=== PATIENT | male | born 1970 | race Caucasian/White ===

== ENCOUNTER 2024-10-12 09:28 | Outpatient (RCR) | payer BC, MEDICAID, SELFPAY ==
[2024-10-11 14:52] LABS: Basophils % (Auto) 1 % (0-2.5); Eosinophils # (Auto) 0.2 Thou/mm3 (0.0-0.5); Eosinophils % (Auto) 3 % (0-10); Hematocrit 32.5 % (41.0-53.0); Hemoglobin 11.2 g/dL (13.5-16.0); Immature Granulocytes % (Auto) 0 % (0-0); Immature Granulocytes Auto 0.01 Thou/mm3 (0.00-0.00); Lymphocytes # (Auto) 1.4 Thou/mm3 (1.0-4.8); Lymphocytes % (Auto) 27 % (10-50); Mean Corpuscular HGB Conc 34.5 g/dl (31.0-37.0); Mean Corpuscular Hemoglobin 29.6 pg (25.0-35.0); Mean Corpuscular Volume 86 fL (80-100); Monocytes # (Auto) 0.5 Thou/mm3 (0.0-0.8); Monocytes % (Auto) 9 % (0-12); Neutrophils # (Auto) 3.2 Thou/mm3 (1.8-7.7); Neutrophils % (Auto) 60 % (37-80); Nucleated Red Blood Cell % 0 /100 WBC (0); Platelet Count 272 Thou/mm3 (140-440); RDW Standard Deviation 47.5 fL (35.1-43.9); Red Blood Count 3.78 Miln/mm3 (4.50-5.90); White Blood Count 5.4 Thou/mm3 (3.8-10.6)
[2024-10-11 15:15] LABS: Alanine Aminotransferase 19 U/L (10-49); Albumin, Serum 4.4 gm/dL (3.5-5.0); Alkaline Phosphatase 83 U/L (46-116); Anion Gap 6 (7-16); Aspartate Amino Transferase 21 U/L (0-34); BUN/Creatinine Ratio 26 Ratio (12-20); Bilirubin,Total 0.7 mg/dL (0.3-1.2); Blood Urea Nitrogen 23 mg/dL (9-23); Carbon Dioxide 26.4 mMol/L (20.0-31.0); Chloride 107 mMol/L (98-107); Creatinine (Component) 0.9 mg/dL (0.6-1.3); Globulin 2.2 gm/dL (2.3-3.5); Glucose 92 mg/dL (74-106); Osmolality,Calculated 281 (275-295); Potassium 3.6 mMol/L (3.4-5.1); Sodium 139 mMol/L (136-145); Total Protein 6.6 gm/dL (5.7-8.2); eGFR > 60 See Note
[2024-10-11 15:16] LABS: Carcinoembryonic Antigen 1.2 ng/mL (0.0-5.0)
--- NOTE | 2024-10-14 18:25 | CTCFLWUP_ITS ---
Patient: DENIZ HARPER : 1970 Page 5 of 5 FOLLOW UP NOTE DATE OF SERVICE: 10/12/2024 NAME: DENIZ HARPER ACCOUNT: [id number] : 1970 AGE: 53 DIAGNOSIS: Stage IIa (pT3, N0, M0) moderately differentiated descending colon adenocarcinoma with hig h risk factors for recurrence (perineural invasion, less than 12 lymph nodes being examined, presente d with bowel obstruction) S/p left hemicolectomy (07/04/2023) S/p adjuvant chemotherapy with 5-FU and leucovorin (this 09/20/2023??02/21/2024) Bipolar disorder. Hypertension REASON FOR TODAY?S VISIT: This is office follow-up visit. Mr. Harper is here at [facility]. He is clinically doing very well. He completed adjuvant chemotherapy. Tolera bret chemotherapy very well without any significant side effects. He denies any complaints today. Denies any cough, chest pain, abdominal pain or leg cramps. Ambulat ing well without any help. Has good appetite and good energy levels. 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 HISTORY OF PRESENT ILLNESS: Deniz Harper is a 53-year-old ENG speaking male history of bi polar disorder has the following oncology history. 07/01/2023: Mr. Harper was seen in the [facility] emergency department because of abdo onelia pain and constipation of 1 week duration. 07/01/2023: CT scan of the abdomen and pelvis without contrast 07/02/2023: Patient had colonoscopy 07/04/2023 : Exploratory laparotomy and resection of the descending colon and splenic flexure, anastom osis between the distal transverse colon and the sigmoid colon. 07/06/2023: CT scan of the chest with IV contrast 07/25/2023: CT scan of the abdomen and pelvis with IV contrast 09/20/2023: Mr. Harper is started on adjuvant chemotherapy with 5-FU and leucovorin PAST MEDICAL HISTORY: colon?ca???chicken?pox PAST SURGICAL HISTORY: colon. appendix eye surg child ochoa . MEDICATIONS: 1. BuSpar - Daily 2. duloxetine - As directed 3. lisinopril - Daily Medications Last Reconciled by Sudha Agee MA on 04/13/2024 ALLERGIES: No Known Allergies REVIEW OF SYSTEMS: Neurological: No headache, seizures or blurring of vision. Gastrointestinal: No nausea, vomiting, diarrhea or constipation. Cardiovascular: No palpitations or angina pains. Respiratory: No cough, chest pain or shortness of breath. PHYSICAL EXAMINATION: VITAL SIGNS: Temperature?99.1, B/P?130/73, Oxygen?Saturation?96% Weight?187?lbs (Change?since?04/12/24 :?50?lbs) PAIN: 0 - No pain General Alert oriented x 4 ? MOUTH: Oral cavity is moist CHEST: Clear to auscultation. No wheezes or rales audible. CARDIAC: Rhythm regular, no murmurs or gallops present. ABDOMEN: Soft. No hepatomegaly. No splenomegaly. Has very well-healed incision in the midline. EXTREMITIES: No pedal edema or cyanosis. LABORATORY DATA: Date 10/11/2024 Time 1:51 PM ??WHITE BLOOD COUNT (Thou/mm3) 5.4 ??RED BLOOD COUNT (Miln/mm3) 3.78 L ??HEMOGLOBIN (gm/dl) 11.2 L ??HEMATOCRIT (%) 32.5 L ??MCV (MEAN CORPUSCULAR VOL) (fl) 86 ??MCH (MEAN CORPUSCULAR HGB) (pg) 29.6 ??MCHC (MEAN CORPSCULR HGB CONC) (gm/dl) 34.5 ??RDW (RBC DISTRIBUTION WDTH) SD (fl) 47.5 H ??PLATELET COUNT (Thou/mm3) 272 ??NEUTROPHILS %, AUTO (%) 60 ??LYMPH %, AUTO (%) 27 ??MONO %, AUTO (%) 9 ??EOS %, AUTO (%) 3 ??BASO %, AUTO (%) 1 ??NUCLEATED RBC % (/100 WBC) 0 ??NEUTROPHILS, AUTO (Thou/mm3) 3.2 ??LYMPH, AUTO (Thou/mm3) 1.4 ??MONO, AUTO (Thou/mm3) 0.5 ??EOS, AUTO (Thou/mm3) 0.2 ??BASO, AUTO (Thou/mm3) 0.0 ??NUCLEATED RBC # (Thou/mm3) 0.00 ??IMMATURE GRANULOCYTES % AUTO (%) 0 ??IMMATURE GRANULOCYTES, AUTO (Thou/mm3) 0.01 H ??GLUCOSE,RANDOM (mg/dL) 92 ??BLOOD UREA NITROGEN (mg/dL) 23 ??CREATININE (mg/dL) 0.90 ??SODIUM (mmol/L) 139 ??POTASSIUM (mmol/L) 3.6 ??CHLORIDE (mmol/L) 107 ??CO2 (CARBON DIOXIDE) (mmol/L) 26.4 ??ANION GAP (mmol/L) 6 L ??OSMOLALITY, CALC 281 ??BUN/CREATININE RATIO (Ratio) 26 H ??CrCl (CandG) (ml/min) 107.25 ??AST/SGOT (Unit/L) 21 ??ALT/SGPT (Unit/L) 19 ??ALKALINE PHOSPHATASE (Unit/L) 83 ??BILIRUBIN, TOTAL (mg/dL) 0.7 ??PROTEIN TOTAL (gm/dl) 6.6 ??ALBUMIN, SERUM (gm/dl) 4.4 ??GLOBULIN (gm/dl) 2.2 L ??ALBUMIN/GLOBULIN RATIO 2.0 ??CALCIUM, SERUM (mg/dL) 9.0 ??CALCIUM SERUM (CORRECTED) (mg/dL) 9.0 ??CEA (O*) (ng/ml) 1.2 Other Labs ? ??CrCl (J) (ml/min) 76.9 ??eGFR (See Note) > 60 ASSESSMENT and plan: 1. Stage IIa (pT3, N0, M0) moderately differentiated descending colon adenocarcinoma with high risk f actors for recurrence (perineural invasion, less than 12 lymph nodes being examined, presented with b owel obstruction) S/p left hemicolectomy (07/04/2023). No clinical evidence of recurrence of his colon cancer. Status post 6 months of adjuvant chemotherapy with 5-FU and leucovorin completed on 02/21/2024. Tolera bret chemotherapy without any significant side effects.. RTC in 6 months with labs 2.Bipolar disorder. 3.Hypertension 4.History of methamphetamine and alcohol abuse for about 6 years. Patient stopped about 30 [address] S[address] Martinez Electronically Signed by: {Object.Sanct_ID*PnP.NameFL@M}, {Object.Sanct_ID*PnP.Suffix@U} D: {Object.Sanct_Date} T: {Object.Sanct_Time} CC: Vel?Marisa,? PCP: Felisha Cummins Referring: Felisha Cummins This document was completed utilizing speech recognition software. Grammatical errors, random word in sertions, pronoun errors, and incomplete sentences are an occasional consequence of this system due t o software limitations, ambient noise, and hardware issues. Any formal questions or concerns about th e content, text or information contained within the body of this dictation should be directly address ed to the provider for clarification.
== END 2024-10-21 23:59 | disposition home or self-care (01) ==
LOC: SCTC 09:28
PROVIDERS: PCP Nurse Practitioner; Referring Provider Nurse Practitioner; Visit Provider Internal Medicine Hematology & Oncology
DX: Z08 Encounter for follow-up examination after completed treatment for malignant neoplasm (principal); Z85.038 Personal history of other malignant neoplasm of large intestine; Z90.49 Acquired absence of other specified parts of digestive tract; Z92.21 Personal history of antineoplastic chemotherapy; F31.9 Bipolar disorder, unspecified; I10 Essential (primary) hypertension; F15.11 Other stimulant abuse, in remission; F10.11 Alcohol abuse, in remission
CPT/HCPCS: 36591; 80053; 82378; 85025; 99212; A4216; J1642; G0463

== ENCOUNTER 2024-10-26 14:28 | Outpatient (RCR) | payer BC, MEDICAID, SELFPAY ==
[2024-10-26 16:17] LABS: Basophils % (Auto) 1 % (0-2.5); Eosinophils # (Auto) 0.3 Thou/mm3 (0.0-0.5); Eosinophils % (Auto) 5 % (0-10); Hematocrit 34.6 % (41.0-53.0); Hemoglobin 11.8 g/dL (13.5-16.0); Immature Granulocytes % (Auto) 0 % (0-0); Immature Granulocytes Auto 0.01 Thou/mm3 (0.00-0.00); Immature Reticulocyte Fraction 17.9 % (2.3-13.4); Lymphocytes # (Auto) 1.7 Thou/mm3 (1.0-4.8); Lymphocytes % (Auto) 27 % (10-50); Mean Corpuscular HGB Conc 34.1 g/dl (31.0-37.0); Mean Corpuscular Volume 88 fL (80-100); Monocytes # (Auto) 0.7 Thou/mm3 (0.0-0.8); Monocytes % (Auto) 10 % (0-12); Neutrophils # (Auto) 3.6 Thou/mm3 (1.8-7.7); Neutrophils % (Auto) 57 % (37-80); Nucleated Red Blood Cell % 0 /100 WBC (0); Platelet Count 228 Thou/mm3 (140-440); RDW Standard Deviation 47.8 fL (35.1-43.9); Red Blood Count 3.93 Miln/mm3 (4.50-5.90); Reticulocyte % (Auto) 1.4 % (0.5-1.5); Reticulocyte Absolute Auto 55.8 Biln/L (25.0-75.0); Reticulocyte Hgb Content 31.4 pg (28.0-35.0); White Blood Count 6.3 Thou/mm3 (3.8-10.6)
[2024-10-26 16:38] LABS: Alanine Aminotransferase 21 U/L (10-49); Albumin, Serum 4.9 gm/dL (3.5-5.0); Albumin/Globulin Ratio 2.2 (1.2-2.2); Alkaline Phosphatase 92 U/L (46-116); Anion Gap 8 (7-16); Aspartate Amino Transferase 23 U/L (0-34); BUN/Creatinine Ratio 25 Ratio (12-20); Bilirubin,Total 0.4 mg/dL (0.3-1.2); Blood Urea Nitrogen 25 mg/dL (9-23); Calcium 9.3 mg/dL (8.3-10.6); Calcium (Corrected) 9.3 mg/dL (8.5-10.1); Carbon Dioxide 26.3 mMol/L (20.0-31.0); Chloride 103 mMol/L (98-107); Globulin 2.2 gm/dL (2.3-3.5); Glucose 97 mg/dL (74-106); LDH (Lactate Dehydrogenase) 176 U/L (120-246); Osmolality,Calculated 278 (275-295); Potassium 4.3 mMol/L (3.4-5.1); Sodium 137 mMol/L (136-145); Total Protein 7.1 gm/dL (5.7-8.2); eGFR > 60 See Note
[2024-10-26 17:08] LABS: Carcinoembryonic Antigen 0.9 ng/mL (0.0-5.0)
[2024-10-26 19:11] LABS: Folate > 24.00 ng/mL (>5.38); Vitamin B12 495 pg/mL (211-911)
[2024-10-26 21:10] LABS: Ferritin 6 ng/mL (10.5-307.3); Total Iron Binding Capacity 403 mcg/dL (250-425)
[2024-10-27 10:20] LABS: Iron 61 mcg/dL (65-175); Percent Iron Saturation 15 % (20-55); Unsaturated Iron Binding 342 (225-295)
[2024-11-06 06:48] LABS: Haptoglobin* 205 mg/dL (43-212); Testosterone,Total* 234 ng/dL (250-1100)
== END 2024-11-21 23:59 | disposition home or self-care (01) ==
LOC: SCTC 14:28
PROVIDERS: PCP Nurse Practitioner; Referring Provider Nurse Practitioner; Visit Provider Internal Medicine Hematology & Oncology
DX: C18.6 Malignant neoplasm of descending colon (principal); Z90.49 Acquired absence of other specified parts of digestive tract; Z92.21 Personal history of antineoplastic chemotherapy; I10 Essential (primary) hypertension; F31.9 Bipolar disorder, unspecified
CPT/HCPCS: 36591; 80053; 82378; 82607; 82728; 82746; 83010; 83540; 83550; 83615; 84403; 85025; 85046; A4216; J1642

== ENCOUNTER 2024-12-19 11:00 | Outpatient (RCR) | payer BC, MEDICAID, SELFPAY ==
[2024-12-18 14:31] LABS: Basophils % (Auto) 0 % (0-2.5); Eosinophils # (Auto) 0.2 Thou/mm3 (0.0-0.5); Eosinophils % (Auto) 2 % (0-10); Hematocrit 37.9 % (41.0-53.0); Hemoglobin 13.6 g/dL (13.5-16.0); Immature Granulocytes % (Auto) 0 % (0-0); Immature Granulocytes Auto 0.01 Thou/mm3 (0.00-0.00); Lymphocytes # (Auto) 1.4 Thou/mm3 (1.0-4.8); Lymphocytes % (Auto) 19 % (10-50); Mean Corpuscular HGB Conc 35.9 g/dl (31.0-37.0); Mean Corpuscular Hemoglobin 31.3 pg (25.0-35.0); Mean Corpuscular Volume 87 fL (80-100); Monocytes # (Auto) 0.6 Thou/mm3 (0.0-0.8); Monocytes % (Auto) 8 % (0-12); Neutrophils % (Auto) 70 % (37-80); Nucleated Red Blood Cell % 0 /100 WBC (0); Platelet Count 245 Thou/mm3 (140-440); RDW Standard Deviation 45.1 fL (35.1-43.9); Red Blood Count 4.35 Miln/mm3 (4.50-5.90); White Blood Count 7.1 Thou/mm3 (3.8-10.6)
[2024-12-18 14:55] LABS: Alanine Aminotransferase 23 U/L (10-49); Albumin/Globulin Ratio 2.2 (1.2-2.2); Alkaline Phosphatase 78 U/L (46-116); Anion Gap 9 (7-16); Aspartate Amino Transferase 19 U/L (0-34); BUN/Creatinine Ratio 24 Ratio (12-20); Bilirubin,Total 0.6 mg/dL (0.3-1.2); Blood Urea Nitrogen 22 mg/dL (9-23); Calcium 9.4 mg/dL (8.3-10.6); Calcium (Corrected) 9.4 mg/dL (8.5-10.1); Carbon Dioxide 26.4 mMol/L (20.0-31.0); Chloride 104 mMol/L (98-107); Creatinine (Component) 0.9 mg/dL (0.6-1.3); Globulin 2.3 gm/dL (2.3-3.5); Glucose 128 mg/dL (74-106); Osmolality,Calculated 282 (275-295); Potassium 3.7 mMol/L (3.4-5.1); Sodium 139 mMol/L (136-145); Total Protein 7.3 gm/dL (5.7-8.2); eGFR > 60 See Note
--- NOTE | 2024-12-19 12:25 | CTCFLWUP_ITS ---
Patient: DENIZ HARPER : 1970 Page 2 of 2 FOLLOW UP NOTE DATE OF SERVICE: 12/19/2024 NAME: DENIZ HARPER ACCOUNT: [id number] : 1970 AGE: 54 INTERVAL HISTORY: Patient is here to follow-up on his labs. ONCOLOGY HISTORY: DIAGNOSIS: Malignant neoplasm of descending colon [ICD10] C18.6 Stage IIa (pT3, N0, M0) moderately differentiated descending colon adenocarcinoma with high risk factors for recurrence (perineural invasion, less than 12 lymph nodes being examined, presented with bowel obstruction) S/p left hemicolectomy (07/04/2023) S/p adjuvant chemotherapy with 5-FU and leucovorin (this 09/20/2023??02/21/2024) Bipolar disorder. Hypertension DATE OF DIAGNOSIS: 07/04/2023 STAGE/TNM: Stage II aT3 N0 M0 TREATMENT HISTORY: Care?Plan Start?Date Cycle Day Intent Bi?wkly?infusional?5?FU?and?Leucovorin 09/20/2023 1 14 Curative?(adjuvant) FERAheme?4?doses 12/19/2024 1 28 Maintenance HISTORY OF PRESENT ILLNESS: Deniz Harper is a 54-year-old ENG speaking male history of bipolar disorder has the following oncology history. 07/01/2023: Mr. Harper was seen in the [facility] emergency department because of abdominal pain and constipation of 1 week duration. 07/01/2023: CT scan of the abdomen and pelvis without contrast 07/02/2023: Patient had colonoscopy 07/06/2023: CT scan of the chest with IV contrast 07/25/2023: CT scan of the abdomen and pelvis with IV contrast 09/20/2023: Mr. Harper is started on adjuvant chemotherapy with 5-FU and leucovorin OTHER MEDICAL HISTORY/CONDITIONS: colon?ca???chicken?pox colon. appendix eye surg child ochoa . FAMILY HISTORY: Patient?denies?family?cancer?history. 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 MEDICATIONS: 1. BuSpar - Daily 2. duloxetine - As directed 3. lisinopril - Daily Medications Last Reconciled by Sudha Agee MA on 12/19/2024 ALLERGIES: No Known Allergies REVIEW OF SYSTEMS: A complete 14-point review of systems was performed and is negative except as noted in interval history. PHYSICAL EXAMINATION: VITAL SIGNS: Temperature?98.4, B/P?106/70, Oxygen?Saturation?98% Weight?181?lbs (Change?since?12/18/24:?-2.8?lbs) PAIN: 0 - No pain ECOG Performance Status: 0 - Asymptomatic and fully active General Alert oriented x 4 ? MOUTH: Oral cavity is moist CHEST: Clear to auscultation. No wheezes or rales audible. CARDIAC: Rhythm regular, no murmurs or gallops present. ABDOMEN: Soft. No hepatomegaly. No splenomegaly. Has very well-healed incision in the midline. EXTREMITIES: No pedal edema or cyanosis. LABORATORY DATA: I have personally reviewed and interpreted each of the patient?s relevant lab tests, abnormal findings are below: Date 12/18/24 ??GLUCOSE,RANDOM?(mg/dL) 128?H ??BLOOD?UREA?NITROGEN?(mg/dL) 22 ??CREATININE?(mg/dL) 0.90 ??SODIUM?(mmol/L) 139 ??POTASSIUM?(mmol/L) 3.7 ??CHLORIDE?(mmol/L) 104 ??CrCl?(CandG)?(ml/min) 108.07 ??AST/SGOT?(Unit/L) 19 ??ALT/SGPT?(Unit/L) 23 ??ALKALINE?PHOSPHATASE?(Unit/L) 78 ??BILIRUBIN,?TOTAL?(mg/dL) 0.6 ??PROTEIN?TOTAL?(gm/dl) 7.3 ??ALBUMIN,?SERUM?(gm/dl) 5.0 ??GLOBULIN?(gm/dl) 2.3 ??ALBUMIN/GLOBULIN?RATIO 2.2 ??CALCIUM,?SERUM?(mg/dL) 9.4 ??CALCIUM?SERUM?(CORRECTED)?(mg/dL) 9.4 ASSESSMENT/PLAN: #1Stage IIa (pT3, N0, M0) moderately differentiated descending colon adenocarcinoma with high risk factors for recurrence (perineural invasion, less than 12 lymph nodes being examined, presented with bowel obstruction) S/p left hemicolectomy (07/04/2023) Status post 6 months of adjuvant chemotherapy with 5-FU and leucovorin completed on 02/21/2024. Tolerated chemotherapy without any significant side effects.. As patient is found to be severely iron deficient even though clinical no signs or symptoms I will refer patient back to Dr. Adam for colonoscopy AMY #2 severe iron deficiency Patient at last visit was found to be anemic Iron studies were ordered and today ferritin is less than 6 Patient is severely iron deficient Denies any bleeding or bruising or change in the color of stools Will order IV iron #3 low testosterone Testosterone level 234 Patient extremely fatigued and tired Will do endocrine consult for testosterone supplement after patient has completed the IV infusions CBC CMP repeat iron studies in [address] Adam for colonoscopy Iron infusion orders RETURN TO CLINIC: 2 to 3 months BILLING AND COMPLIANCE: I reviewed external records from providers outside my specialty as summarized above. I spent a total of 50 minutes on this patient?s care on the day of their visit excluding time spent related to any billed procedures. This time includes time spent with the patient as well as time spent documenting in the medical record, reviewing patients records and tests, obtaining history, placing orders, communicating with other healthcare professionals, counseling the patient, family or caregiver, and/or care coordination for the diagnoses above. Electronically Signed by: Andres Martinez MD T: 12:23 PM CC: Vel?Marisa? PCP: Felisha Cummins Referring: Felisha Cummins This document was completed utilizing speech recognition software. Grammatical errors, random word insertions, pronoun errors, and incomplete sentences are an occasional consequence of this system due to software limitations, ambient noise, and hardware issues. Any formal questions or concerns about the content, text or information contained within the body of this dictation should be directly addressed to the provider for clarification.
== END 2024-12-22 23:59 | disposition home or self-care (01) ==
LOC: SCTC 11:00
PROVIDERS: PCP Nurse Practitioner; Referring Provider Nurse Practitioner; Visit Provider Internal Medicine Hematology & Oncology
DX: C18.6 Malignant neoplasm of descending colon (principal); Z90.49 Acquired absence of other specified parts of digestive tract; Z92.21 Personal history of antineoplastic chemotherapy; E61.1 Iron deficiency; E29.1 Testicular hypofunction
CPT/HCPCS: 36591; 80053; 82378; 85025; 99212; A4216; J1642; G0463

== ENCOUNTER 2025-01-17 08:36 | Outpatient (RCR) | payer BC, MEDICAID, SELFPAY ==
[2025-01-02 08:29] LABS: Basophils # (Auto) 0.1 Thou/mm3 (0.0-0.2); Basophils % (Auto) 1 % (0-2.5); Eosinophils # (Auto) 0.2 Thou/mm3 (0.0-0.5); Eosinophils % (Auto) 4 % (0-10); Hematocrit 36.9 % (41.0-53.0); Hemoglobin 12.7 g/dL (13.5-16.0); Immature Granulocytes % (Auto) 0 % (0-0); Immature Granulocytes Auto 0.01 Thou/mm3 (0.00-0.00); Lymphocytes # (Auto) 1.4 Thou/mm3 (1.0-4.8); Lymphocytes % (Auto) 30 % (10-50); Mean Corpuscular HGB Conc 34.4 g/dl (31.0-37.0); Mean Corpuscular Hemoglobin 30.2 pg (25.0-35.0); Mean Corpuscular Volume 88 fL (80-100); Monocytes # (Auto) 0.5 Thou/mm3 (0.0-0.8); Monocytes % (Auto) 10 % (0-12); Neutrophils # (Auto) 2.6 Thou/mm3 (1.8-7.7); Neutrophils % (Auto) 55 % (37-80); Nucleated Red Blood Cell % 0 /100 WBC (0); Platelet Count 242 Thou/mm3 (140-440); RDW Standard Deviation 45.2 fL (35.1-43.9); White Blood Count 4.6 Thou/mm3 (3.8-10.6)
[2025-01-02 08:51] LABS: Alanine Aminotransferase 26 U/L (10-49); Albumin, Serum 4.6 gm/dL (3.5-5.0); Albumin/Globulin Ratio 2.1 (1.2-2.2); Alkaline Phosphatase 75 U/L (46-116); Anion Gap 5 (7-16); Aspartate Amino Transferase 23 U/L (0-34); BUN/Creatinine Ratio 28 Ratio (12-20); Bilirubin,Total 0.4 mg/dL (0.3-1.2); Blood Urea Nitrogen 22 mg/dL (9-23); Calcium 9.5 mg/dL (8.3-10.6); Calcium (Corrected) 9.5 mg/dL (8.5-10.1); Carbon Dioxide 27.4 mMol/L (20.0-31.0); Chloride 108 mMol/L (98-107); Creatinine (Component) 0.8 mg/dL (0.6-1.3); Globulin 2.2 gm/dL (2.3-3.5); Glucose 119 mg/dL (74-106); Osmolality,Calculated 283 (275-295); Potassium 4.1 mMol/L (3.4-5.1); Sodium 140 mMol/L (136-145); Total Protein 6.8 gm/dL (5.7-8.2); eGFR > 60 See Note
== END 2025-01-19 23:59 | disposition home or self-care (01) ==
LOC: SCTC 08:36
PROVIDERS: PCP Nurse Practitioner; Referring Provider Nurse Practitioner; Visit Provider Internal Medicine Hematology & Oncology
DX: D50.9 Iron deficiency anemia, unspecified (principal); E29.1 Testicular hypofunction; C18.6 Malignant neoplasm of descending colon; Z90.49 Acquired absence of other specified parts of digestive tract
CPT/HCPCS: 36591; 80053; 85025; 96365; 96375; A4216; J1642; J2919; J3490; J7040; J7050; Q0138

== ENCOUNTER 2025-01-31 11:05 | Outpatient (RCR) | payer BC, MEDICAID, SELFPAY ==
[2025-01-30 09:15] LABS: Basophils % (Auto) 1 % (0-2.5); Eosinophils # (Auto) 0.2 Thou/mm3 (0.0-0.5); Eosinophils % (Auto) 4 % (0-10); Hematocrit 38.1 % (41.0-53.0); Hemoglobin 13.1 g/dL (13.5-16.0); Immature Granulocytes % (Auto) 1 % (0-0); Immature Granulocytes Auto 0.02 Thou/mm3 (0.00-0.00); Lymphocytes # (Auto) 1.3 Thou/mm3 (1.0-4.8); Lymphocytes % (Auto) 31 % (10-50); Mean Corpuscular HGB Conc 34.4 g/dl (31.0-37.0); Mean Corpuscular Hemoglobin 30.9 pg (25.0-35.0); Mean Corpuscular Volume 90 fL (80-100); Monocytes # (Auto) 0.5 Thou/mm3 (0.0-0.8); Monocytes % (Auto) 11 % (0-12); Neutrophils # (Auto) 2.3 Thou/mm3 (1.8-7.7); Neutrophils % (Auto) 54 % (37-80); Nucleated Red Blood Cell % 0 /100 WBC (0); Platelet Count 190 Thou/mm3 (140-440); RDW Standard Deviation 48.6 fL (35.1-43.9); Red Blood Count 4.24 Miln/mm3 (4.50-5.90); White Blood Count 4.3 Thou/mm3 (3.8-10.6)
[2025-01-30 10:03] LABS: Alanine Aminotransferase 36 U/L (10-49); Albumin, Serum 4.3 gm/dL (3.5-5.0); Alkaline Phosphatase 70 U/L (46-116); Anion Gap 7 (7-16); Aspartate Amino Transferase 26 U/L (0-34); BUN/Creatinine Ratio 20 Ratio (12-20); Bilirubin,Total 0.5 mg/dL (0.3-1.2); Blood Urea Nitrogen 16 mg/dL (9-23); Calcium 9.2 mg/dL (8.3-10.6); Calcium (Corrected) 9.2 mg/dL (8.5-10.1); Carbon Dioxide 27.1 mMol/L (20.0-31.0); Chloride 107 mMol/L (98-107); Creatinine (Component) 0.8 mg/dL (0.6-1.3); Globulin 2.1 gm/dL (2.3-3.5); Glucose 117 mg/dL (74-106); Osmolality,Calculated 283 (275-295); Potassium 3.8 mMol/L (3.4-5.1); Sodium 141 mMol/L (136-145); Total Protein 6.4 gm/dL (5.7-8.2); eGFR > 60 See Note
[2025-01-30 10:15] LABS: Ferritin 534 ng/mL (10.5-307.3); Iron 235 mcg/dL (65-175); Percent Iron Saturation 84 % (20-55); Total Iron Binding Capacity 279 mcg/dL (250-425); Unsaturated Iron Binding 44 (225-295)
[2025-01-30 10:17] LABS: Folate > 24.00 ng/mL (>5.38); Vitamin B12 > 2000 pg/mL (211-911)
--- NOTE | 2025-03-11 17:48 | CTCFLWUP_ITS ---
Patient: DENIZ HARPER : 1970 Page 5 of 7 FOLLOW UP NOTE DATE OF SERVICE: 01/31/2025 NAME: DENIZ HARPER ACCOUNT: [id number] : 1970 AGE: 54 INTERVAL HISTORY: Patient is here to follow-up on his labs. ONCOLOGY HISTORY:?[facility] Hx? DIAGNOSIS: Malignant neoplasm of descending colon [ICD10] C18.6 Stage IIa (pT3, N0, M0) moderately differentiated descending colon adenocarcinoma with high risk factors for recurrence (perineural invasion, less than 12 lymph nodes being examined, presented with bowel obstruction) S/p left hemicolectomy (07/04/2023) S/p adjuvant chemotherapy with 5-FU and leucovorin (this 09/20/2023??02/21/2024) Bipolar disorder. Hypertension DATE OF DIAGNOSIS: 07/04/2023 STAGE/TNM: Stage II aT3 N0 M0 TREATMENT HISTORY: Care?Plan Start?Date Cycle Day Intent Bi?wkly?infusional?5?FU?and?Leucovorin 09/20/2023 1 14 Curative?(adjuvant) FERAheme?4?doses 01/03/2025 1 28 Maintenance HISTORY OF PRESENT ILLNESS: Deniz Harper is a 54-year-old ENG speaking male history of bipolar disorder has the following oncology history. 07/01/2023: Mr. Harper was seen in the [facility] emergency department because of abdominal pain and constipation of 1 week duration. 07/01/2023: CT scan of the abdomen and pelvis without contrast 07/02/2023: Patient had colonoscopy 07/06/2023: CT scan of the chest with IV contrast 07/25/2023: CT scan of the abdomen and pelvis with IV contrast 09/20/2023: Mr. Harper is started on adjuvant chemotherapy with 5-FU and leucovorin OTHER MEDICAL HISTORY/CONDITIONS: colon?ca???chicken?pox colon. appendix eye surg child ochoa . FAMILY HISTORY: Patient?denies?family?cancer?history. 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 MEDICATIONS: 1. BuSpar - Daily 2. duloxetine - As directed 3. lisinopril - Daily?Palabra Meds? Medications Last Reconciled by Sudha Agee MA on 01/31/2025 ALLERGIES: No Known Allergies REVIEW OF SYSTEMS: A complete 14-point review of systems was performed and is negative except as noted in interval history. PHYSICAL EXAMINATION:?[facility] PE? VITAL SIGNS: Temperature?98.3, B/P?109/72, Oxygen?Saturation?97% Weight?181?lbs (Change?since?01/30/25:?-1.6?lbs) PAIN: 0 - No pain General Alert oriented x 4 ? MOUTH: Oral cavity is moist CHEST: Clear to auscultation. No wheezes or rales audible. CARDIAC: Rhythm regular, no murmurs or gallops present. ABDOMEN: Soft. No hepatomegaly. No splenomegaly. Has very well-healed incision in the midline. EXTREMITIES: No pedal edema or cyanosis. LABORATORY DATA: I have personally reviewed and interpreted each of the patient?s relevant lab tests, abnormal findings are below: Date 01/02/25 01/30/25 ??WHITE?BLOOD?COUNT?(Thou/mm3) 4.6 4.3 ??RED?BLOOD?COUNT?(Miln/mm3) 4.20?L 4.24?L ??HEMOGLOBIN?(gm/dl) 12.7?L 13.1?L ??HEMATOCRIT?(%) 36.9?L 38.1?L ??PLATELET?COUNT?(Thou/mm3) 242 190 ??NEUTROPHILS?%,?AUTO?(%) 55 54 ??LYMPH?%,?AUTO?(%) 30 31 ??NEUTROPHILS,?AUTO?(Thou/mm3) 2.6 2.3 ??GLUCOSE,RANDOM?(mg/dL) ? 117?H ??BLOOD?UREA?NITROGEN?(mg/dL) ? 16 ??CREATININE?(mg/dL) ? 0.80 ??SODIUM?(mmol/L) ? 141 ??POTASSIUM?(mmol/L) ? 3.8 ??CHLORIDE?(mmol/L) ? 107 ??CrCl?(CandG)?(ml/min) ? 120.79 ??AST/SGOT?(Unit/L) ? 26 ??ALT/SGPT?(Unit/L) ? 36 ??ALKALINE?PHOSPHATASE?(Unit/L) ? 70 ??BILIRUBIN,?TOTAL?(mg/dL) ? 0.5 ??PROTEIN?TOTAL?(gm/dl) ? 6.4 ??ALBUMIN,?SERUM?(gm/dl) ? 4.3 ??GLOBULIN?(gm/dl) ? 2.1?L ??ALBUMIN/GLOBULIN?RATIO ? 2.0 ??CALCIUM,?SERUM?(mg/dL) ? 9.2 ??CALCIUM?SERUM?(CORRECTED)?(mg/dL) ? 9.2 ??TOTAL?IRON?BINDING?CAP?(S*)?(mcg/dL) ? 279 ??UNBOUND?IBC?(mcg/dL) ? 44?L ASSESSMENT/PLAN:?Neelam Martinez Assessment/Plan? #1Stage IIa (pT3, N0, M0) moderately differentiated descending colon adenocarcinoma with high risk factors for recurrence (perineural invasion, less than 12 lymph nodes being examined, presented with bowel obstruction) S/p left hemicolectomy (07/04/2023) Status post 6 months of adjuvant chemotherapy with 5-FU and leucovorin completed on 02/21/2024. Tolerated chemotherapy without any significant side effects.. As patient is found to be severely iron deficient even though clinical no signs or symptoms I will refer patient back to Dr. Adam for colonoscopy AMY #2 severe iron deficiency Patient at last visit was found to be anemic Iron studies were ordered and today ferritin is less than 6 Patient is severely iron deficient Denies any bleeding or bruising or change in the color of stools Will order IV iron #3 low testosterone Testosterone level 234 Patient extremely fatigued and tired Will do endocrine consult for testosterone supplement after patient has completed the IV infusions CBC CMP repeat iron studies in [address] Adam for colonoscopy Iron infusion orders ORDERS: Order # Description Ordering Physician Date Condition Diagnosis Account Number Status Statused By (Full Name) Statused By (Initial) Status Date User Defined Data [id number] Infusion 1 Hour Andres Martinez 01/24/2025 ? (C18.6) Malignant neoplasm of descending colon ? Approved Andres Martinez 12/19/2024 ? [id number] MichelleDarron reidt 01/31/2025 naterra for ctdna for colon monitoring . (C18.6) Malignant neoplasm of descending colon ? Approved MichelleDarron reidt 01/31/2025 ? [id number] Comprehensive Metabolic Panel - 12 + CBC with Auto Diff + CEA + MD Follow Up 6 Month MichelleDarron reidt 01/31/2025 ? (C18.6) [facility] descending [facility] [id number] MD Follow Up 2 Months MichelleDarron reidt 01/31/2025 ? (C18.6) Malignant neoplasm of descending colon ? [facility] ? [id number] Comprehensive Metabolic Panel - 12 + CBC with Auto Diff MichelleDarron reidt 02/16/2025 ? (C18.6) Malignant neoplasm of descending colon ? [facility] ? [id number] Ferritin + Iron Panel + Vitamin B-12 + Folic Acid; [facility] ? (C18.6) Malignant neoplasm of descending colon ? [facility] ? RETURN TO CLINIC: 3 -4 weeks BILLING AND COMPLIANCE: I reviewed external records from providers outside my specialty as summarized above. I spent a total of 50 minutes on this patient?s care on the day of their visit excluding time spent related to any billed procedures. This time includes time spent with the patient as well as time spent documenting in the medical record, reviewing patients records and tests, obtaining history, placing orders, communicating with other healthcare professionals, counseling the patient, family or caregiver, and/or care coordination for the diagnoses above. Electronically Signed by: Andres Martinez MD T: 5:46 PM CC: Vel?Marisa,? PCP: Felisha Cummins Referring: Felisha Cummins This document was completed utilizing speech recognition software. Grammatical errors, random word insertions, pronoun errors, and incomplete sentences are an occasional consequence of this system due to software limitations, ambient noise, and hardware issues. Any formal questions or concerns about the content, text or information contained within the body of this dictation should be directly addressed to the provider for clarification.
== END 2025-02-19 23:59 | disposition home or self-care (01) ==
LOC: SCTC 11:05
PROVIDERS: PCP Nurse Practitioner; Referring Provider Nurse Practitioner; Visit Provider Internal Medicine Hematology & Oncology
DX: C18.6 Malignant neoplasm of descending colon (principal); D50.9 Iron deficiency anemia, unspecified; E29.1 Testicular hypofunction; Z90.49 Acquired absence of other specified parts of digestive tract; Z92.21 Personal history of antineoplastic chemotherapy; I10 Essential (primary) hypertension
CPT/HCPCS: 36591; 80053; 82607; 82728; 82746; 83540; 83550; 85025; 96365; 96375; 99212; A4216; J1642; J2919; J3490; J7040; J7050; Q0138; G0463

== ENCOUNTER 2025-04-05 12:56 | Outpatient (RCR) | payer BC, MEDICAID, SELFPAY ==
[2025-04-04 15:02] LABS: Basophils % (Auto) 1 % (0-2.5); Eosinophils # (Auto) 0.1 Thou/mm3 (0.0-0.5); Eosinophils % (Auto) 2 % (0-10); Hematocrit 38.5 % (41.0-53.0); Hemoglobin 13.6 g/dL (13.5-16.0); Immature Granulocytes % (Auto) 0 % (0-0); Immature Granulocytes Auto 0.02 Thou/mm3 (0.00-0.00); Lymphocytes # (Auto) 1.3 Thou/mm3 (1.0-4.8); Lymphocytes % (Auto) 22 % (10-50); Mean Corpuscular HGB Conc 35.3 g/dl (31.0-37.0); Mean Corpuscular Hemoglobin 32.3 pg (25.0-35.0); Mean Corpuscular Volume 91 fL (80-100); Monocytes # (Auto) 0.6 Thou/mm3 (0.0-0.8); Monocytes % (Auto) 10 % (0-12); Neutrophils # (Auto) 3.8 Thou/mm3 (1.8-7.7); Neutrophils % (Auto) 64 % (37-80); Nucleated Red Blood Cell % 0 /100 WBC (0); Platelet Count 216 Thou/mm3 (140-440); RDW Standard Deviation 45.1 fL (35.1-43.9); Red Blood Count 4.21 Miln/mm3 (4.50-5.90); White Blood Count 5.9 Thou/mm3 (3.8-10.6)
[2025-04-04 15:24] LABS: Alanine Aminotransferase 24 U/L (10-49); Albumin, Serum 4.4 gm/dL (3.5-5.0); Alkaline Phosphatase 73 U/L (46-116); Anion Gap 10 (7-16); Aspartate Amino Transferase 20 U/L (0-34); BUN/Creatinine Ratio 30 Ratio (12-20); Bilirubin,Total 0.7 mg/dL (0.3-1.2); Blood Urea Nitrogen 24 mg/dL (9-23); Calcium 8.7 mg/dL (8.3-10.6); Calcium (Corrected) 8.7 mg/dL (8.5-10.1); Carbon Dioxide 28.3 mMol/L (20.0-31.0); Chloride 105 mMol/L (98-107); Creatinine (Component) 0.8 mg/dL (0.6-1.3); Globulin 2.2 gm/dL (2.3-3.5); Glucose 95 mg/dL (74-106); Osmolality,Calculated 288 (275-295); Potassium 3.6 mMol/L (3.4-5.1); Sodium 143 mMol/L (136-145); Total Protein 6.6 gm/dL (5.7-8.2); eGFR > 60 See Note
[2025-04-04 15:27] LABS: Ferritin 237 ng/mL (10.5-307.3); Iron 99 mcg/dL (65-175); Percent Iron Saturation 34 % (20-55); Total Iron Binding Capacity 286 mcg/dL (250-425); Unsaturated Iron Binding 187 (225-295)
[2025-04-04 15:44] LABS: Folate > 24.00 ng/mL (>5.38); Vitamin B12 > 2000 pg/mL (211-911)
--- NOTE | 2025-04-12 14:18 | CTCFLWUP_ITS ---
Patient: DENIZ HARPER : 1970 Page 7 of 8 FOLLOW UP NOTE DATE OF SERVICE: 04/05/2025 NAME: DENIZ HARPER ACCOUNT: [id number] : 1970 AGE: 54 INTERVAL HISTORY: Chief Complaint Follow-up for colon cancer and iron deficiency anemia treatment History of Present Illness Kalli is a patient with a history of stage 2 adenocarcinoma of the colon with high-risk features, who completed chemotherapy in February 2024. The patient presents for follow-up of their cancer treatment and management of iron deficiency anemia. The patient reports feeling decent with increased energy levels following four iron infusions. They note improvement in their overall condition, with their observing better coloring. The patient's iron deficiency, which was previously severe with a ferritin level less than 6, has now improved si gnificantly. The patient mentions attending an appointment with a testosterone doctor in [place] but had to cancel due to misplacing the required blood work paper. They have obtained the fax number to reschedule and send the necessary documentation. The patient also acknowledges the need to schedule a colonoscopy appointment. Regarding cancer surveillance, the patient's recent Mary Jane test came back negative for cancer. The patient understands the importance of continuing with Mary Jane testing for colon cancer monitoring. Medications and Supplements - Iron infusions - Received four infusions - Benefits: Improved energy, normalized hemoglobin (now 14), improved iron levels, better coloring Review of Systems General: Positive for increased energy. Objective: Laboratory, Imaging, and Diagnostic Test Results - Mary Jane test: Negative for cancer - Current results: - Hemoglobin: 14 g/dL (normal) - Iron: Normal (better than normal) - Ferritin: 237 ng/mL - Previous results: - Hemoglobin: 11 g/dL - Iron: 6 (unit not specified) - Ferritin: < 6 ng/mL ONCOLOGY HISTORY: DIAGNOSIS: Malignant neoplasm of descending colon [ICD10] C18.6 Stage IIa (pT3, N0, M0) moderately differentiated descending colon adenocarcinoma with high risk factors for recurrence (perineural invasion, less than 12 lymph nodes being examined, presented with bowel obstruction) S/p left hemicolectomy (07/04/2023) S/p adjuvant chemotherapy with 5-FU and leucovorin (this 09/20/2023??02/21/2024) Bipolar disorder. Hypertension DATE OF DIAGNOSIS: 07/04/2023 STAGE/TNM: Stage II aT3 N0 M0 TREATMENT HISTORY: Care?Plan Start?Date Cycle Day Intent Bi?wkly?infusional?5?FU?and?Leucovorin 09/20/2023 1 14 Curative?(adjuvant) FERAheme?4?doses 01/03/2025 1 28 Maintenance HISTORY OF PRESENT ILLNESS: Deniz Harper is a 54-year-old ENG speaking male history of bipolar disorder has the following oncology history. 07/01/2023: Mr. Harper was seen in the [facility] emergency department because of abdominal pain and constipation of 1 week duration. 07/01/2023: CT scan of the abdomen and pelvis without contrast 07/02/2023: Patient had colonoscopy 07/06/2023: CT scan of the chest with IV contrast 07/25/2023: CT scan of the abdomen and pelvis with IV contrast 09/20/2023: Mr. Harper is started on adjuvant chemotherapy with 5-FU and leucovorin OTHER MEDICAL HISTORY/CONDITIONS: colon?ca???chicken?pox colon. appendix eye surg child ochoa . FAMILY HISTORY: Patient?denies?family?cancer?history. 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 MEDICATIONS: 1. BuSpar - Daily 2. duloxetine - As directed 3. lisinopril - Daily Medications Last Reconciled by Sudha Agee MA on 04/05/2025 ALLERGIES: No Known Allergies REVIEW OF SYSTEMS: A complete 14-point review of systems was performed and is negative except as noted in interval history. PHYSICAL EXAMINATION: VITAL SIGNS: Temperature?98.4, B/P?139/77, Oxygen?Saturation?100% Weight?189?lbs (Change?since?04/04/25:?1.2?lbs) PAIN: 0 - No pain ECOG Performance Status: 1 - Symptomatic; ambulatory; restricted in strenuous activity General Alert oriented x 4 ? MOUTH: Oral cavity is moist CHEST: Clear to auscultation. No wheezes or rales audible. CARDIAC: Rhythm regular, no murmurs or gallops present. ABDOMEN: Soft. No hepatomegaly. No splenomegaly. Has very well-healed incision in the midline. EXTREMITIES: No pedal edema or cyanosis. LABORATORY DATA: I have personally reviewed and interpreted each of the patient?s relevant lab tests, abnormal findings are below: Date 01/30/25 04/04/25 ??WHITE?BLOOD?COUNT?(Thou/mm3) 4.3 5.9 ??RED?BLOOD?COUNT?(Miln/mm3) 4.24?L 4.21?L ??HEMOGLOBIN?(gm/dl) 13.1?L 13.6 ??HEMATOCRIT?(%) 38.1?L 38.5?L ??PLATELET?COUNT?(Thou/mm3) 190 216 ??NEUTROPHILS?%,?AUTO?(%) 54 64 ??LYMPH?%,?AUTO?(%) 31 22 ??NEUTROPHILS,?AUTO?(Thou/mm3) 2.3 3.8 ??GLUCOSE,RANDOM?(mg/dL) ? 95 ??BLOOD?UREA?NITROGEN?(mg/dL) ? 24?H ??CREATININE?(mg/dL) ? 0.80 ??SODIUM?(mmol/L) ? 143 ??POTASSIUM?(mmol/L) ? 3.6 ??CHLORIDE?(mmol/L) ? 105 ??CrCl?(CandG)?(ml/min) ? 124.23 ??AST/SGOT?(Unit/L) ? 20 ??ALT/SGPT?(Unit/L) ? 24 ??ALKALINE?PHOSPHATASE?(Unit/L) ? 73 ??BILIRUBIN,?TOTAL?(mg/dL) ? 0.7 ??PROTEIN?TOTAL?(gm/dl) ? 6.6 ??ALBUMIN,?SERUM?(gm/dl) ? 4.4 ??GLOBULIN?(gm/dl) ? 2.2?L ??ALBUMIN/GLOBULIN?RATIO ? 2.0 ??CALCIUM,?SERUM?(mg/dL) ? 8.7 ??CALCIUM?SERUM?(CORRECTED)?(mg/dL) ? 8.7 ??TOTAL?IRON?BINDING?CAP?(S*)?(mcg/dL) ? 286 ??UNBOUND?IBC?(mcg/dL) ? 187?L ASSESSMENT/PLAN: #1Stage IIa (pT3, N0, M0) moderately differentiated descending colon adenocarcinoma with high risk factors for recurrence (perineural invasion, less than 12 lymph nodes being examined, presented with bowel obstruction) S/p left hemicolectomy (07/04/2023) Status post 6 months of adjuvant chemotherapy with 5-FU and leucovorin completed on 02/21/2024. Tolerated chemotherapy without any significant side effects.. As patient is found to be severely iron deficient even though clinical no signs or symptoms I will refer patient back to Dr. Adam for colonoscopy [facility] Patient completed chemotherapy for stage 2 adenocarcinoma of the colon with high-risk features in February 2024. Only 12 lymph nodes were removed during surgery, which is suboptimal. Recent Mary Jane test for cancer recurrence was negative, indicating no detectable cancer at this time. Continued monitoring is necessary due to the high-risk nature of the cancer. Plan: - Continue Mary Jane testing for colon cancer surveillance - Schedule colonoscopy for further surveillance - Follow up in June for blood work and reassessment Iron deficiency anemia, resolved Assessment: Patient had severe iron deficiency anemia with initial ferritin less than 6 and hemoglobin of 11. After four iron infusions, the patient reports feeling decent with more energy. Current lab results show normalized hemoglobin at 14 and iron levels better than normal, with ferritin now at 237. Patient's noted improved coloring after iron infusions. Plan: - Monitor iron levels and hemoglobin - Reassess in June with blood work Testosterone deficiency, suspected Assessment: Patient attempted to see a testosterone doctor in [place] but had to cancel the appointment due to misplaced blood work paper. The exact nature and severity of the suspected testosterone deficiency are unclear at this time. Plan: - Obtain blood work paper from the doctor in [place] - Reschedule appointment with testosterone doctor using provided fax number - Follow up on testosterone evaluation results at next visit Testosterone level 234 Patient extremely fatigued and tired Follow-up with endocrine ORDERS: Order # Description [id number] Comprehensive Metabolic Panel - 12 + CBC with Auto Diff + CEA + MD Follow Up 3 Months [id number] Ferritin + Vitamin B-12 + Folic Acid; Serum + Lactate Dehydrogenase (LDH) + Iron Panel RETURN TO CLINIC: Return in June BILLING AND COMPLIANCE: I reviewed external records from providers outside my specialty as summarized above. I spent a total of 50 minutes on this patient?s care on the day of their visit excluding time spent related to any billed procedures. This time includes time spent with the patient as well as time spent documenting in the medical record, reviewing patients records and tests, obtaining history, placing orders, communicating with other healthcare professionals, counseling the patient, family or caregiver, and/or care coordination for the diagnoses above. Electronically Signed by: {Object.Sanct_ID*[email or web address]@M}, {Object.Sanct_ID*[email or web address]@U} D: {Object.Sanct_Date} T: {Object.Sanct_Time} CC: Vel?Marisa,? PCP: Andres Martinez Referring: Andres Martinez This document was completed utilizing speech recognition software. Grammatical errors, random word insertions, pronoun errors, and incomplete sentences are an occasional consequence of this system due to software limitations, ambient noise, and hardware issues. Any formal questions or concerns about the content, text or information contained within the body of this dictation should be directly addressed to the provider for clarification.
== END 2025-04-21 23:59 | disposition home or self-care (01) ==
LOC: SCTC 12:56
PROVIDERS: PCP Nurse Practitioner; Referring Provider Internal Medicine Hematology & Oncology; Visit Provider Internal Medicine Hematology & Oncology
DX: C18.6 Malignant neoplasm of descending colon (principal); Z92.21 Personal history of antineoplastic chemotherapy; Z90.49 Acquired absence of other specified parts of digestive tract; Z86.2 Personal history of diseases of the blood and blood-forming organs and certain disorders involving the immune mechanism
CPT/HCPCS: 36591; 80053; 82607; 82728; 82746; 83540; 83550; 85025; 99212; A4216; J1642; G0463

== ENCOUNTER 2025-07-12 13:00 | Outpatient (RCR) | payer BC, MEDICAID, SELFPAY ==
[2025-07-11 09:41] LABS: Basophils # (Auto) 0.0 Thou/mm3 (0.0-0.2); Basophils % (Auto) 1 % (0-2.5); Eosinophils # (Auto) 0.1 Thou/mm3 (0.0-0.5); Eosinophils % (Auto) 3 % (0-10); Hematocrit 40.9 % (41.0-53.0); Hemoglobin 14.3 g/dL (13.5-16.0); Immature Granulocytes Auto 0.01 Thou/mm3 (0.00-0.00); Lymphocytes # (Auto) 1.4 Thou/mm3 (1.0-4.8); Lymphocytes % (Auto) 28 % (10-50); Mean Corpuscular HGB Conc 35.0 g/dl (31.0-37.0); Mean Corpuscular Hemoglobin 32.0 pg (25.0-35.0); Mean Corpuscular Volume 92 fL (80-100); Monocytes # (Auto) 0.4 Thou/mm3 (0.0-0.8); Monocytes % (Auto) 9 % (0-12); Neutrophils # (Auto) 2.9 Thou/mm3 (1.8-7.7); Neutrophils % (Auto) 60 % (37-80); Nucleated Red Blood Cell # 0.00 Thou/mm3 (0.00-0.00); Nucleated Red Blood Cell % 0 /100 WBC (0); Platelet Count 207 Thou/mm3 (140-440); RDW Standard Deviation 41.1 fL (35.1-43.9); Red Blood Count 4.47 Miln/mm3 (4.50-5.90); White Blood Count 4.9 Thou/mm3 (3.8-10.6)
[2025-07-11 09:59] LABS: Alanine Aminotransferase 19 U/L (10-49); Albumin, Serum 4.6 gm/dL (3.5-5.0); Albumin/Globulin Ratio 2.2 (1.2-2.2); Alkaline Phosphatase 80 U/L (46-116); Anion Gap 10 (7-16); Aspartate Amino Transferase 22 U/L (0-34); BUN/Creatinine Ratio 19 Ratio (12-20); Bilirubin,Total 0.7 mg/dL (0.3-1.2); Blood Urea Nitrogen 15 mg/dL (9-23); Calcium 10.0 mg/dL (8.3-10.6); Calcium (Corrected) 10.0 mg/dL (8.5-10.1); Carbon Dioxide 28.1 mMol/L (20.0-31.0); Chloride 103 mMol/L (98-107); Creatinine (Component) 0.8 mg/dL (0.6-1.3); Globulin 2.1 gm/dL (2.3-3.5); Glucose 106 mg/dL (74-106); Osmolality,Calculated 282 (275-295); Potassium 4.3 mMol/L (3.4-5.1); Sodium 141 mMol/L (136-145); Total Protein 6.7 gm/dL (5.7-8.2); eGFR > 60 See Note
[2025-07-11 10:00] LABS: Carcinoembryonic Antigen 0.7 ng/mL (0.0-5.0)
[2025-07-11 10:02] LABS: Ferritin 209 ng/mL (10.5-307.3); Iron 117 mcg/dL (65-175); Percent Iron Saturation 37 % (20-55); Total Iron Binding Capacity 310 mcg/dL (250-425); Unsaturated Iron Binding 193 (225-295)
[2025-07-11 10:22] LABS: Folate > 24.00 ng/mL (>5.38); Vitamin B12 651 pg/mL (211-911)
--- NOTE | 2025-07-12 14:14 | CTCFLWUP_ITS ---
Patient: DENIZ HARPER : 1970 Page 6 of 8 FOLLOW UP NOTE DATE OF SERVICE: 07/12/2025 NAME: DENIZ HARPER ACCOUNT: [id number] : 1970 AGE: 54 INTERVAL HISTORY: Chief Complaint Follow-up for colon cancer and iron deficiency anemia treatment. Patient is doing well. Have not completed naterra for MRD. History of Present Illness Kalli is a patient with a history of stage 2 adenocarcinoma of the colon with high-risk features, who completed chemotherapy in February 2024. The patient presents for follow-up of their cancer treatment and management of iron deficiency anemia. The patient reports feeling decent with increased energy levels following four iron infusions. They note improvement in their overall condition, with their observing better coloring. The patient's iron deficiency, which was previously severe with a ferritin level less than 6, has now improved si gnificantly. The patient mentions attending an appointment with a testosterone doctor in [place] but had to cancel due to misplacing the required blood work paper. They have obtained the fax number to reschedule and send the necessary documentation. The patient also acknowledges the need to schedule a colonoscopy appointment. Regarding cancer surveillance, the patient's recent Mary Jane test came back negative for cancer. The patient understands the importance of continuing with Mary Jane testing for colon cancer monitoring. Medications and Supplements - Iron infusions - Received four infusions - Benefits: Improved energy, normalized hemoglobin (now 14), improved iron levels, better coloring Review of Systems General: Positive for increased energy. Objective: Laboratory, Imaging, and Diagnostic Test Results - Mary Jane test: Negative for cancer - Current results: - Hemoglobin: 14 g/dL (normal) - Iron: Normal (better than normal) - Ferritin: 237 ng/mL - Previous results: - Hemoglobin: 11 g/dL - Iron: 6 (unit not specified) - Ferritin: < 6 ng/mL ONCOLOGY HISTORY: DIAGNOSIS: Malignant neoplasm of descending colon [ICD10] C18.6 Stage IIa (pT3, N0, M0) moderately differentiated descending colon adenocarcinoma with high risk factors for recurrence (perineural invasion, less than 12 lymph nodes being examined, presented with bowel obstruction) S/p left hemicolectomy (07/04/2023) S/p adjuvant chemotherapy with 5-FU and leucovorin (this 09/20/2023??02/21/2024) Bipolar disorder. Hypertension DATE OF DIAGNOSIS: 07/04/2023 STAGE/TNM: Stage II aT3 N0 M0 TREATMENT HISTORY: Care?Plan Start?Date Cycle Day Intent Bi?wkly?infusional?5?FU?and?Leucovorin 09/20/2023 1 14 Curative?(adjuvant) FERAheme?4?doses 01/03/2025 1 28 Maintenance HISTORY OF PRESENT ILLNESS: Deniz Harper is a 54-year-old ENG speaking male history of bipolar disorder has the following oncology history. 07/01/2023: Mr. Harper was seen in the [facility] emergency department because of abdominal pain and constipation of 1 week duration. 07/01/2023: CT scan of the abdomen and pelvis without contrast 07/02/2023: Patient had colonoscopy 07/06/2023: CT scan of the chest with IV contrast 07/25/2023: CT scan of the abdomen and pelvis with IV contrast 09/20/2023: Mr. Harper is started on adjuvant chemotherapy with 5-FU and leucovorin OTHER MEDICAL HISTORY/CONDITIONS: colon?ca???chicken?pox colon. appendix eye surg child ochoa . FAMILY HISTORY: Patient?denies?family?cancer?history. 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 MEDICATIONS: 1. BuSpar - Daily 2. duloxetine - As directed 3. lisinopril - Daily Medications Last Reconciled by Vicky Atkinson RN on 07/12/2025 ALLERGIES: No Known Allergies REVIEW OF SYSTEMS: A complete 14-point review of systems was performed and is negative except as noted in interval history. PHYSICAL EXAMINATION: VITAL SIGNS: Temperature?99.4, B/P?131/86 Weight?186?lbs (Change?since?07/11/25:?-1.2?lbs) PAIN: 0 - No pain ECOG Performance Status: 1 - Symptomatic; ambulatory; restricted in strenuous activity General Alert oriented x 4 ? MOUTH: Oral cavity is moist CHEST: Clear to auscultation. No wheezes or rales audible. CARDIAC: Rhythm regular, no murmurs or gallops present. ABDOMEN: Soft. No hepatomegaly. No splenomegaly. Has very well-healed incision in the midline. EXTREMITIES: No pedal edema or cyanosis. LABORATORY DATA: I have personally reviewed and interpreted each of the patient?s relevant lab tests, abnormal findings are below: Date 07/11/25 ??WHITE?BLOOD?COUNT?(Thou/mm3) 4.9 ??RED?BLOOD?COUNT?(Miln/mm3) 4.47?L ??HEMOGLOBIN?(gm/dl) 14.3 ??HEMATOCRIT?(%) 40.9?L ??PLATELET?COUNT?(Thou/mm3) 207 ??NEUTROPHILS?%,?AUTO?(%) 60 ??LYMPH?%,?AUTO?(%) 28 ??NEUTROPHILS,?AUTO?(Thou/mm3) 2.9 ??GLUCOSE,RANDOM?(mg/dL) 106 ??BLOOD?UREA?NITROGEN?(mg/dL) 15 ??CREATININE?(mg/dL) 0.80 ??SODIUM?(mmol/L) 141 ??POTASSIUM?(mmol/L) 4.3 ??CHLORIDE?(mmol/L) 103 ??CrCl?(CandG)?(ml/min) 123.83 ??AST/SGOT?(Unit/L) 22 ??ALT/SGPT?(Unit/L) 19 ??ALKALINE?PHOSPHATASE?(Unit/L) 80 ??BILIRUBIN,?TOTAL?(mg/dL) 0.7 ??PROTEIN?TOTAL?(gm/dl) 6.7 ??ALBUMIN,?SERUM?(gm/dl) 4.6 ??GLOBULIN?(gm/dl) 2.1?L ??ALBUMIN/GLOBULIN?RATIO 2.2 ??CALCIUM,?SERUM?(mg/dL) 10.0 ??CALCIUM?SERUM?(CORRECTED)?(mg/dL) 10.0 ??CEA?(O*)?(ng/ml) 0.7 ??TOTAL?IRON?BINDING?CAP?(S*)?(mcg/dL) 310 ??UNBOUND?IBC?(mcg/dL) 193?L ASSESSMENT/PLAN: #1Stage IIa (pT3, N0, M0) moderately differentiated descending colon adenocarcinoma with high risk factors for recurrence (perineural invasion, less than 12 lymph nodes being examined, presented with bowel obstruction) S/p left hemicolectomy (07/04/2023) Status post 6 months of adjuvant chemotherapy with 5-FU and leucovorin completed on 02/21/2024. Tolerated chemotherapy without any significant side effects.. As patient is found to be severely iron deficient even though clinical no signs or symptoms I will refer patient back to Dr. Adam for colonoscopy [facility] Patient completed chemotherapy for stage 2 adenocarcinoma of the colon with high-risk features in February 2024. Only 12 lymph nodes were removed during surgery, which is suboptimal. Recent Mary Jane test for cancer recurrence was negative, indicating no detectable cancer at this time. Continued monitoring is necessary due to the high-risk nature of the cancer. Plan: - Continue Mary Jane testing for colon cancer surveillance - Schedule colonoscopy for further surveillance - Follow up in June for blood work and reassessment Iron deficiency anemia, resolved Assessment: Patient had severe iron deficiency anemia with initial ferritin less than 6 and hemoglobin of 11. After four iron infusions, the patient reports feeling decent with more energy. Current lab results show normalized hemoglobin at 14 and iron levels better than normal, with ferritin now at 237. Patient's noted improved coloring after iron infusions. Plan: - Monitor iron levels and hemoglobin - Reassess in June with blood work Testosterone deficiency, suspected Assessment: Patient attempted to see a testosterone doctor in [place] but had to cancel the appointment due to misplaced blood work paper. The exact nature and severity of the suspected testosterone deficiency are unclear at this time. Plan: - Obtain blood work paper from the doctor in [place] - Reschedule appointment with testosterone doctor using provided fax number - Follow up on testosterone evaluation results at next visit Testosterone level 234 Patient extremely fatigued and tired Follow-up with endocrine ORDERS: Order # Description [id number] Comprehensive Metabolic Panel - 12 + CBC with Auto Diff + CEA + MD Follow Up 6 Month [id number] Comprehensive Metabolic Panel - 12 + CBC with Auto Diff + CEA + MD Follow Up 3 Months [id number] Ferritin + Vitamin B-12 + Folic Acid; Serum + Lactate Dehydrogenase (LDH) + Iron Panel RETURN TO CLINIC: I reviewed the diagnosis, prognosis, and recommended treatment/procedure options with the patient (and/or their legal access representative), including the potential benefits, risks, side effects and alternative therapies. We also discussed the option of no treatment and the possibility of clinical trial participation, if applicable. All questions were addressed, and they demonstrated understanding. They provided informed consent to proceed with the proposed plan of care. BILLING AND COMPLIANCE: I reviewed external records from providers outside my specialty as summarized above. I spent a total of 50 minutes on this patient?s care on the day of their visit excluding time spent related to any billed procedures. This time includes time spent with the patient as well as time spent documenting in the medical record, reviewing patients records and tests, obtaining history, placing orders, communicating with other healthcare professionals, counseling the patient, family or caregiver, and/or care coordination for the diagnoses above. Electronically Signed by: Andres Martinez MD T: 2:11 PM CC: CAMRON Villarreal PCP: Felisha Cummins Referring: Felisha Cummins This document was completed utilizing speech recognition software. Grammatical errors, random word insertions, pronoun errors, and incomplete sentences are an occasional consequence of this system due to software limitations, ambient noise, and hardware issues. Any formal questions or concerns about the content, text or information contained within the body of this dictation should be directly addressed to the provider for clarification.
== END 2025-07-22 23:59 | disposition home or self-care (01) ==
LOC: SCTC 13:00
PROVIDERS: PCP Nurse Practitioner; Referring Provider Nurse Practitioner; Visit Provider Internal Medicine Hematology & Oncology
DX: Z08 Encounter for follow-up examination after completed treatment for malignant neoplasm (principal); Z85.038 Personal history of other malignant neoplasm of large intestine; Z92.21 Personal history of antineoplastic chemotherapy; Z86.2 Personal history of diseases of the blood and blood-forming organs and certain disorders involving the immune mechanism
CPT/HCPCS: 36591; 80053; 82378; 82607; 82728; 82746; 83540; 83550; 85025; 99212; A4216; J1642; G0463